=== PATIENT | female | born 1975 | race African-American/Black ===

== ENCOUNTER 2016-12-31 14:45 | Emergency (ER) | payer OTHER ==
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
[~2016-12-31 14:45] MED LIST: ANXIETY MED; HYDROXYZINE PAM25 M1 PO; NO MEDICATIONS; VISTARIL50 MG PO
== END 2016-12-31 15:42 | disposition home or self-care (01) ==
LOC: SED 14:45
DX: S16.1XXA Strain of muscle, fascia and tendon at neck level, initial encounter (principal); F17.210 Nicotine dependence, cigarettes, uncomplicated; V49.40XA Driver injured in collision with unspecified motor vehicles in traffic accident, initial encounter; Y92.488 Other paved roadways as the place of occurrence of the external cause
CPT/HCPCS: 72040; 72072; 99284

== ENCOUNTER 2017-04-25 02:58 | Emergency (ER) | payer OTHER ==
[~2017-04-25] VITALS: Ht 170.2 cm; Wt 78.5 kg
[2017-04-25] MEDS ORDERED: HYDROXYZINE HCL10 MG PO (03:05)
== END 2017-04-25 03:20 | disposition home or self-care (01) ==
LOC: SED 02:58
DX: F41.9 Anxiety disorder, unspecified (principal)
CPT/HCPCS: 99283